=== PATIENT | male | born 1985 | race African-American/Black ===

== ENCOUNTER 2017-06-30 22:58 | Emergency (ER) | payer MEDICAID ==
[~2017-06-30] VITALS: Ht 172.7 cm; Wt 67.0 kg
[~2017-06-30 22:58] MED LIST: NOCURR
[2017-07-01] MEDS ORDERED: CEPHALEXIN MONOHYDRATE 500 MG CAPSULE PO ONE (02:45)
[2017-07-01] MEDS ORDERED: SULFAMETHOX/TRIMETH DS 800-160 MG/TABLET PO ONE (02:45)
[2017-07-01] MEDS ORDERED: LIDOCAINE HCL 1%/EPI 1:200,000/PF 10 ML VIAL INJ ONE (02:45)
[2017-07-01 04:47] VITALS: BP 130/80
== END 2017-07-01 04:49 | disposition home or self-care (01) ==
LOC: EMS 23:00
DX: L02.811 Cutaneous abscess of head [any part, except face] (principal); F17.210 Nicotine dependence, cigarettes, uncomplicated
CPT/HCPCS: 10060; 99283; 99406; J3490

== ENCOUNTER 2017-08-19 17:29 | Emergency (ER) | payer SELFPAY ==
[~2017-08-19] VITALS: Ht 170.2 cm; Wt 70.5 kg
[2017-08-19 19:38] VITALS: BP 128/82
== END 2017-08-19 19:40 | disposition home or self-care (01) ==
LOC: EMS 17:30
DX: L02.811 Cutaneous abscess of head [any part, except face] (principal); F17.210 Nicotine dependence, cigarettes, uncomplicated
CPT/HCPCS: 99283; 99406

== ENCOUNTER 2018-03-11 22:56 | Emergency (ER) | payer SELFPAY ==
[~2018-03-11] VITALS: Ht 172.7 cm; Wt 68.2 kg
[2018-03-12 02:02] LABS: BASOPHILS % (AUTO) 0.9 % (0.0-2.0); EOSINOPHILS % (AUTO) 4.5 % (1.0-6.0); HEMATOCRIT 39.4 % (41-53); HEMOGLOBIN 13.1 g/dL (13.5-17.5); LYMPHOCYTES % (AUTO) 56.4 % (22.0-44.0); MEAN CORPUSCULAR HEMOGLOBIN 29.9 pg (26.0-34.0); MEAN CORPUSCULAR HGB CONC 33.3 G/dL (31.0-37.0); MEAN CORPUSCULAR VOLUME 90 fL (80-100); MONOCYTES # (AUTO) 0.4 K/uL (0.1-1.0); MONOCYTES % (AUTO) 8.1 % (2.0-9.0); NEUTROPHILS # (AUTO) 1.6 K/uL (1.8-7.7); NEUTROPHILS % (AUTO) 30.1 % (40.0-70.0); PLATELET COUNT (AUTO) 238 K/uL (150-450); RED BLOOD CELL COUNT(AUTO) 4.39 MIL/uL (4.50-5.90); RED CELL DISTRIBUTION WIDTH 13.4 % (11.5-14.5)
[2018-03-12 02:11] LABS: ANION GAP 3 mmol/L (8-16); CALCIUM, TOTAL 8.3 mg/dL (8.8-10.5); CARBON DIOXIDE 32 mmol/L (22-29); CHLORIDE 104 mmol/L (98-107); CREATININE 0.99 mg/dL (0.60-1.30); GLOMERULAR FILTR. RATE CALC > 60 mL/min (>60); GLUCOSE,RANDOM 85 mg/dL (70-110); POTASSIUM 3.6 mmol/L (3.5-5.1); SODIUM SERUM 139 mmol/L (136-145); UREA NITROGEN, BLOOD 11 mg/dL (7-18)
[2018-03-12 02:17] LABS: ALANINE AMINOTRANSFERASE 27 U/L (12-78); ALBUMIN 3.4 g/dL (3.4-5.0); ALKALINE PHOSPHATASE 48 U/L (46-116); ASPARTATE AMINOTRANSFERASE 19 U/L (15-37); BILIRUBIN,TOTAL 0.2 mg/dL (0.1-1.0); TOTAL PROTEIN, SERUM 6.5 g/dL (6.4-8.2)
[2018-03-12 02:32] VITALS: BP 122/80
== END 2018-03-12 03:01 | disposition home or self-care (01) ==
LOC: EMS 22:57
DX: B35.0 Tinea barbae and tinea capitis (principal); R51 Headache; F17.210 Nicotine dependence, cigarettes, uncomplicated; F12.90 Cannabis use, unspecified, uncomplicated; Z90.49 Acquired absence of other specified parts of digestive tract
CPT/HCPCS: 36415; 80053; 85025; 99284; G0480

== ENCOUNTER 2018-05-03 01:55 | Emergency (ER) | payer SELFPAY ==
[~2018-05-03] VITALS: Ht 172.7 cm; Wt 150.0 kg
[2018-05-03 02:10] VITALS: BP 130/97
[2018-05-03] MEDS ORDERED: KETOROLAC TROMETHAMINE 60 MG/2 ML VIAL IM ONE (02:30)
== END 2018-05-03 02:53 | disposition home or self-care (01) ==
LOC: EMS 01:55
DX: S02.5XXA Fracture of tooth (traumatic), initial encounter for closed fracture (principal); F12.90 Cannabis use, unspecified, uncomplicated; F17.210 Nicotine dependence, cigarettes, uncomplicated; X58.XXXA Exposure to other specified factors, initial encounter; Y93.89 Activity, other specified; Y92.89 Other specified places as the place of occurrence of the external cause; Y99.8 Other external cause status
CPT/HCPCS: 96372; 99283; J1885